=== PATIENT | male | born 1980 | race African-American/Black ===

== ENCOUNTER 2022-05-18 04:49 | Emergency (ER) | payer OTHER ==
[~2022-05-18] VITALS: Ht 170.2 cm; Wt 97.0 kg
[2022-05-18] MEDS ORDERED: NS 500 ML IV ONE (05:10)
[2022-05-18 05:34] LABS: BASO # 0.1 10^3/uL (0.0-0.2); BASO % 0.6 % (0.0-1.0); EOS # 0.1 10^3/uL (0.0-0.5); HEMATOCRIT 46.3 % (42.0-52.0); HEMOGLOBIN 17.2 g/dl (13.5-17.5); LYMPH # 4.5 10^3/uL (1.5-5.0); LYMPH % 39.8 % (24.0-44.0); MEAN CORPUSCULAR HEMOGLOBIN 32.2 pg (27.0-33.0); MEAN CORPUSCULAR HGB CONC 37.1 g/dl (32.0-36.5); MEAN CORPUSCULAR VOLUME 86.7 fl (80.0-96.0); MONO # 0.6 10^3/uL (0.0-0.8); MONO % 5.7 % (2.0-8.0); NEUTROPHILS # 5.9 10^3/uL (1.5-8.5); NEUTROPHILS % 52.4 % (36.0-66.0); PLATELET COUNT, AUTOMATED 198 10^3/uL (150-450); RED BLOOD COUNT 5.34 10^6/uL (4.30-6.10); WHITE BLOOD COUNT 11.2 10^3/uL (4.0-10.0)
[2022-05-18 05:45] LABS: PROTHROMBIN TIME 13.4 SECONDS (12.5-14.5)
[2022-05-18 05:46] LABS: PARTIAL THROMBOPLASTIN TIME 26.8 SECONDS (24.8-34.2)
[2022-05-18 05:50] LABS: CK-MB VALUE MASS < 1.0 NG/ML (<3.6)
[2022-05-18 05:52] LABS: ALBUMIN 4.1 G/DL (3.2-5.2); ALKALINE PHOSPHATASE 81 U/L (46-116); ALT/SGPT 61 U/L (7.0-40); AST/SGOT 28 U/L (<34); BILIRUBIN,DIRECT 0.3 MG/DL (<0.4); BILIRUBIN,TOTAL 0.6 MG/DL (0.3-1.2); BLOOD UREA NITROGEN 9 MG/DL (9-23); CALCIUM LEVEL 9.2 MG/DL (8.5-10.1); CARBON DIOXIDE LEVEL 24 MMOL/L (20-31); CHLORIDE LEVEL 103 MMOL/L (98-107); CPK CREATINE PHOSPHOKINASE 59 U/L (46-171); CREATININE FOR GFR 0.76 MG/DL (0.70-1.30); GLOMERULAR FILTRATION RATE > 60.0 (>60); GLUCOSE, FASTING 158 MG/DL (60-100); MAGNESIUM LEVEL 1.4 MG/DL (1.8-2.4); MB/CK RELATIVE INDEX 1.69 (< OR =4); POTASSIUM SERUM 3.5 MMOL/L (3.5-5.1); SODIUM LEVEL 139 MMOL/L (136-145); TOTAL PROTEIN 7.4 G/DL (5.7-8.2)
[2022-05-18 05:53] LABS: FREE T4 1.32 NG/DL (0.89-1.76); THYROID STIMULATING HORMONE 0.493 uIU/ML (0.55-4.78)
[2022-05-18] MEDS ORDERED: NS 1,000 ML IV SCH (06:05)
[2022-05-18] MEDS ORDERED: MAGNESIUM OXIDE 400MG TAB (MAG-OX) PO ONE (06:05)
[2022-05-18] MEDS ORDERED: ISOVUE-370 76% 100ML VIAL As Ordered ONE (06:31)
[2022-05-18 07:06] LABS: CK-MB VALUE MASS < 1.0 NG/ML (<3.6)
[2022-05-18 07:08] LABS: CPK CREATINE PHOSPHOKINASE 55 U/L (46-171); MB/CK RELATIVE INDEX 1.81 (< OR =4)
[2022-05-18] MEDS ORDERED: PROP10TA56 PO (08:28)
[2022-05-18 08:31] VITALS: BP 151/84
== END 2022-05-18 08:48 | disposition home or self-care (01) ==
LOC: M ED 04:49
DX: R00.2 Palpitations (principal); F32.A Depression, unspecified; R06.02 Shortness of breath; R00.0 Tachycardia, unspecified
CPT/HCPCS: 71045; 71275; 80048; 80076; 82550; 82553; 83735; 84100; 84439; 84443; 85025; 85610; 85730; 93005; 93041; 94760; 96360; 96361; 99285; Q9967

== ENCOUNTER → 2022-10-14 | Outpatient (REF) ==
[~2022-10-14] MED LIST: PROP10TA56 PO
== END ==
LOC: M EMP 07:58
PROVIDERS: ATTEND Family Medicine
DX: Z11.52 Encounter for screening for COVID-19 (principal)

== ENCOUNTER → 2022-12-06 | Outpatient (CLI) | payer OTHER ==
[2022-12-06 07:21] LABS: BASO % 0.4 % (0.0-1.0); EOS # 0.1 10^3/uL (0.0-0.5); EOS % 1.6 % (0.0-3.0); HEMATOCRIT 40.9 % (42.0-52.0); LYMPH # 2.1 10^3/uL (1.5-5.0); LYMPH % 25.4 % (24.0-44.0); MEAN CORPUSCULAR HEMOGLOBIN 32.2 pg (27.0-33.0); MEAN CORPUSCULAR HGB CONC 36.7 g/dl (32.0-36.5); MEAN CORPUSCULAR VOLUME 87.8 fl (80.0-96.0); MONO # 0.5 10^3/uL (0.0-0.8); NEUTROPHILS # 5.5 10^3/uL (1.5-8.5); NEUTROPHILS % 66.1 % (36.0-66.0); PLATELET COUNT, AUTOMATED 210 10^3/uL (150-450); RED BLOOD COUNT 4.66 10^6/uL (4.30-6.10); WHITE BLOOD COUNT 8.3 10^3/uL (4.0-10.0)
[2022-12-06 07:59] LABS: ALKALINE PHOSPHATASE 71 U/L (46-116); ALT/SGPT 38 U/L (7.0-40); AST/SGOT 16 U/L (<34); BLOOD UREA NITROGEN 19 MG/DL (9-23); CALCIUM LEVEL 8.8 MG/DL (8.5-10.1); CARBON DIOXIDE LEVEL 25 MMOL/L (20-31); CHLORIDE LEVEL 103 MMOL/L (98-107); CHOLESTEROL LEVEL 102 MG/DL (<200); CHOLESTEROL RISK RATIO 2.58 (<5); CREATININE FOR GFR 0.72 MG/DL (0.70-1.30); GLOMERULAR FILTRATION RATE > 60.0 (>60); GLUCOSE, FASTING 136 MG/DL (60-100); HDL CHOLESTEROL 39.5 MG/DL (>40); LDL CHOLESTEROL 27.9 MG/DL (<100); NON-HDL-C 62.5 MG/DL; POTASSIUM SERUM 4.3 MMOL/L (3.5-5.1); SODIUM LEVEL 138 MMOL/L (136-145); TRIGLYCERIDES LEVEL 173 MG/DL (<150)
[2022-12-06 08:59] LABS: HEMOGLOBIN A1c 5.1 % (4.0-6.0)
== END ==
LOC: M LAB 06:09
DX: E11.9 Type 2 diabetes mellitus without complications (principal)

== ENCOUNTER → 2023-01-28 | Outpatient (REF) | LOC: M EMP 11:36 | PROVIDERS: ATTEND Family Medicine | DX: Z11.52 Encounter for screening for COVID-19 (principal) ==

== ENCOUNTER 2023-07-18 21:37 | Observation (INO) | payer OTHER ==
[~2023-07-18] VITALS: Ht 170.2 cm; Wt 106.0 kg
[2023-07-18 22:12] LABS: INR 1.03; PARTIAL THROMBOPLASTIN TIME 26.2 SECONDS (24.8-34.2); PROTHROMBIN TIME 13.2 SECONDS (12.5-14.5)
[2023-07-18 22:15] LABS: BASO % 0.4 % (0.0-1.0); EOS # 0.1 10^3/uL (0.0-0.5); EOS % 1.6 % (0.0-3.0); HEMATOCRIT 42.9 % (42.0-52.0); LYMPH # 2.6 10^3/uL (1.5-5.0); LYMPH % 35.2 % (24.0-44.0); MEAN CORPUSCULAR HEMOGLOBIN 32.3 pg (27.0-33.0); MEAN CORPUSCULAR VOLUME 86.5 fl (80.0-96.0); MONO # 0.4 10^3/uL (0.0-0.8); MONO % 5.8 % (2.0-8.0); NEUTROPHILS # 4.2 10^3/uL (1.5-8.5); NEUTROPHILS % 56.3 % (36.0-66.0); PLATELET COUNT, AUTOMATED 176 10^3/uL (150-450); RED BLOOD COUNT 4.96 10^6/uL (4.30-6.10); WHITE BLOOD COUNT 7.4 10^3/uL (4.0-10.0)
[2023-07-18 22:18] LABS: MEAN CORPUSCULAR HGB CONC 37.3 g/dl (32.0-36.5)
[2023-07-18 22:26] LABS: CK-MB VALUE MASS < 1.0 NG/ML (<3.6)
[2023-07-18 22:28] LABS: BLOOD UREA NITROGEN 15 MG/DL (9-23); CALCIUM LEVEL 9.3 MG/DL (8.5-10.1); CARBON DIOXIDE LEVEL 26 MMOL/L (20-31); CHLORIDE LEVEL 104 MMOL/L (98-107); CPK CREATINE PHOSPHOKINASE 65 U/L (46-171); CREATININE FOR GFR 0.68 MG/DL (0.70-1.30); GLOMERULAR FILTRATION RATE > 60.0 (>60); GLUCOSE, FASTING 206 MG/DL (60-100); MAGNESIUM LEVEL 1.8 MG/DL (1.8-2.4); MB/CK RELATIVE INDEX 1.53 (< OR =4); POTASSIUM SERUM 4.2 MMOL/L (3.5-5.1); SODIUM LEVEL 137 MMOL/L (136-145)
[2023-07-18 22:30] LABS: FREE T4 1.44 NG/DL (0.89-1.76)
[2023-07-18] MEDS ORDERED: ISOVUE-370 76% 100ML VIAL As Ordered ONE (22:37)
[2023-07-18] MEDS: MECLIZINE 25 MG TABLET PO ONE (22:38)
[2023-07-18 23:49] LABS: CK-MB VALUE MASS < 1.0 NG/ML (<3.6)
[2023-07-18 23:50] LABS: CPK CREATINE PHOSPHOKINASE 51 U/L (46-171); MB/CK RELATIVE INDEX 1.96 (< OR =4)
[2023-07-19] MEDS: ASPIRIN 325 MG TAB PO ONE (02:59)
[2023-07-19] MEDS ORDERED: GLUCAGON INJ 1MG VIAL SC PRN (04:00)
[2023-07-19] MEDS ORDERED: DEXTROSE 50% 50ML SYRINGE IV PRN (04:00)
[2023-07-19] MEDS ORDERED: GLUCOSE 4 GM CHEW PO PRN (04:00)
[2023-07-19 05:49] LABS: HEMOGLOBIN A1c 5.8 % (4.0-6.0)
[2023-07-19 05:59] VITALS: BP 157/88; TEMP 98.4; O2SAT 95
[2023-07-19 06:02] LABS: CHOLESTEROL LEVEL 114 MG/DL (<200); CHOLESTEROL RISK RATIO 3.14 (<5); HDL CHOLESTEROL 36.3 MG/DL (>40); LDL CHOLESTEROL 33.7 MG/DL (<100); NON-HDL-C 77.7 MG/DL; TRIGLYCERIDES LEVEL 220 MG/DL (<150)
[2023-07-19] MEDS: ACETAMINOPHEN 500 MG TAB PO PRN (06:35)
[2023-07-19] MEDS: INSULIN LISPRO (NovoLOG) PER UNIT SC SCH (07:30)
[2023-07-19] MEDS ORDERED: D3 H10002 PO (08:26)
[2023-07-19] MEDS ORDERED: B-12100021 PO (08:26)
[2023-07-19] MEDS ORDERED: TRUL10IN SC (08:26)
[2023-07-19] MEDS ORDERED: LOSA100T8 PO (08:26)
[2023-07-19] MEDS ORDERED: MAGN400T2 PO (08:26)
[2023-07-19] MEDS ORDERED: AMLO1TAB25 PO (08:26)
[2023-07-19] MEDS: ENOXAPARIN 40MG/0.4ML SYRINGE (J1650 PER 10MG) SC SCH (08:47)
[2023-07-19] MEDS: ASPIRIN 81MG ENTERIC TABLET PO SCH (08:47)
[2023-07-19] MEDS: LOSARTAN 50MG TABLET PO SCH (09:00)
[2023-07-19] MEDS ORDERED: HEPARIN SOD (PORCINE) 5000UNITS/ML 1ML VIAL/SYRINGE SC SCH (09:00)
[2023-07-19] MEDS ORDERED: ROSU20TA61 PO (09:13)
[2023-07-19] MEDS ORDERED: METF-838 PO (09:13)
[2023-07-19] MEDS ORDERED: ALPR0.25 PO (09:13)
[2023-07-19] MEDS ORDERED: HOME MED LIST COMPLETE! XX SCH (09:15)
[2023-07-19] MEDS: ALPRAZolam 0.5 MG TAB PO ONE (09:26)
[2023-07-19 09:46] LABS: BASO # 0.1 10^3/uL (0.0-0.2); BASO % 0.6 % (0.0-1.0); EOS # 0.2 10^3/uL (0.0-0.5); EOS % 2.2 % (0.0-3.0); HEMATOCRIT 41.8 % (42.0-52.0); HEMOGLOBIN 15.4 g/dl (13.5-17.5); LYMPH # 2.8 10^3/uL (1.5-5.0); LYMPH % 33.2 % (24.0-44.0); MEAN CORPUSCULAR VOLUME 86.7 fl (80.0-96.0); MONO # 0.5 10^3/uL (0.0-0.8); MONO % 6.5 % (2.0-8.0); NEUTROPHILS # 4.8 10^3/uL (1.5-8.5); PLATELET COUNT, AUTOMATED 162 10^3/uL (150-450); RED BLOOD COUNT 4.82 10^6/uL (4.30-6.10); WHITE BLOOD COUNT 8.3 10^3/uL (4.0-10.0)
[2023-07-19 09:47] LABS: MEAN CORPUSCULAR HGB CONC 36.8 g/dl (32.0-36.5)
[2023-07-19 09:49] LABS: ALBUMIN 3.7 G/DL (3.2-5.2); ALKALINE PHOSPHATASE 75 U/L (46-116); ALT/SGPT 64 U/L (7.0-40); AST/SGOT 26 U/L (<34); BILIRUBIN,TOTAL 0.9 MG/DL (0.3-1.2); BLOOD UREA NITROGEN 15 MG/DL (9-23); CALCIUM LEVEL 9.1 MG/DL (8.5-10.1); CARBON DIOXIDE LEVEL 25 MMOL/L (20-31); CHLORIDE LEVEL 105 MMOL/L (98-107); CREATININE FOR GFR 0.68 MG/DL (0.70-1.30); GLOMERULAR FILTRATION RATE > 60.0 (>60); GLUCOSE, FASTING 151 MG/DL (60-100); MAGNESIUM LEVEL 1.8 MG/DL (1.8-2.4); POTASSIUM SERUM 3.8 MMOL/L (3.5-5.1); SODIUM LEVEL 139 MMOL/L (136-145); TOTAL PROTEIN 6.8 G/DL (5.7-8.2)
[2023-07-19] MEDS: KETOROLAC 30 MG/ML 1ML VIAL IV ONE (10:00)
[2023-07-19] MEDS: ROSUVASTATIN 10 MG TAB (CRESTOR) PO SCH (10:57)
[2023-07-19 11:31] VITALS: BP 133/66
[2023-07-19] MEDS ORDERED: LOSA-528 PO (11:33)
[2023-07-19 11:58] VITALS: BP 133/66
[2023-07-19] MEDS ORDERED: MECL-86 PO (12:01)
[2023-07-19] MEDS ORDERED: LOSA100T46 PO (12:31)
== END 2023-07-19 14:15 | disposition home or self-care (01) ==
LOC: M ED 21:37 → M ED INP 21:38 → M PCU 07-19 02:26 → M ED INP 07-19 02:26 → M PCU 07-19 05:55
PROVIDERS: ADMIT Internal Medicine; ATTEND Internal Medicine
DX: R42 Dizziness and giddiness (principal); R26.81 Unsteadiness on feet; I10 Essential (primary) hypertension; E78.5 Hyperlipidemia, unspecified; E11.9 Type 2 diabetes mellitus without complications; F32.A Depression, unspecified; F41.0 Panic disorder [episodic paroxysmal anxiety]; R00.2 Palpitations; H53.8 Other visual disturbances; E04.1 Nontoxic single thyroid nodule; Z82.49 Family history of ischemic heart disease and other diseases of the circulatory system; Z82.3 Family history of stroke; Z82.41 Family history of sudden cardiac death; Z79.899 Other long term (current) drug therapy
CPT/HCPCS: 36415; 70450; 70496; 70498; 70551; 71046; 80048; 80053; 80061; 82550; 82553; 83036; 83735; 84439; 84443; 84484; 85025; 85610; 85730; 93005; 93041; 93306; 94760; 96372; 97161; 99285; J1650; Q9967